=== PATIENT | male | born 1985 | race African-American/Black ===

== ENCOUNTER 2017-11-13 19:38 | Emergency (ER) | payer MEDICAID ==
[~2017-11-13] VITALS: Ht 188 cm; Wt 160.0 kg
[2017-11-13] MEDS ORDERED: AZITHROMYCIN 500 MG TABLET PO ONE (20:15)
[2017-11-13] MEDS ORDERED: CEFTRIAXONE SODIUM 250 MG/VIAL IM ONE (20:15)
[2017-11-13 21:45] VITALS: BP 120/74
[2017-11-13 22:22] LABS: CLARITY URINE CLEAR (CLEAR); COLOR URINE YELLOW (YELLOW); KETONES URINE NEGATIVE (NEGATIVE); LEUKOCYTE ESTERASE URINE NEGATIVE (NEGATIVE); NITRITE URINE NEGATIVE (NEGATIVE); OCCULT BLOOD URINE NEGATIVE (NEGATIVE); PH URINE 6.5 (4.5-8.0); PROTEIN URINE NEGATIVE (NEGATIVE); SPECIFIC GRAVITY URINE 1.033 (1.005-1.030)
[2017-11-16 04:19] LABS: CHLAMYDIA TRACHOMATIS NAA Negative (Negative); NEISSERIA GONORRHOEAE NAA Negative (Negative)
== END 2017-11-13 21:47 | disposition home or self-care (01) ==
LOC: ER 19:38
DX: A63.8 Other specified predominantly sexually transmitted diseases (principal); F12.10 Cannabis abuse, uncomplicated; Z72.51 High risk heterosexual behavior
CPT/HCPCS: 81003; 86592; 87491; 87591; 96372; 99284; J0696; Z7610

== ENCOUNTER 2018-02-06 21:32 | Emergency (ER) | payer MEDICAID ==
[~2018-02-06] VITALS: Ht 188 cm; Wt 79.0 kg
[2018-02-07] MEDS ORDERED: IBUPROFEN 600MG TABLET PO ONE (01:00)
[2018-02-07] MEDS ORDERED: LIDOCAINE HCL/PF 1% 10 MG/ML 5ML VIAL IJ ONE (01:00)
[2018-02-07] MEDS ORDERED: TETANUS, DIPHTHERIA, PERTUSSIS VAC/PF 0.5ML (>7YR OLD) IM ONE (01:00)
[2018-02-07 02:05] VITALS: BP 124/62
== END 2018-02-07 02:31 | disposition home or self-care (01) ==
LOC: ER 21:32
DX: L02.811 Cutaneous abscess of head [any part, except face] (principal); F12.10 Cannabis abuse, uncomplicated
CPT/HCPCS: 10060; 90471; 90715; 99283; J3490